=== PATIENT | female | born 1960 | race Caucasian/White ===

== ENCOUNTER 2020-11-21 12:49 | Inpatient (IN) | payer BC ==
[~2020-11-21] VITALS: Ht 165.1 cm; Wt 77.1 kg
[~2020-11-21 12:49] MED LIST: ALLEGRA-D TABLE1 TAB PO; BENADRYL25 M2 PO; BRINTELLIX20 PO; FLEXERIL 1010 MG/TAB PO; KLOR-CON 1010 MEQ PO; KLOR-CON SPRINK8 MEQ PO; LASIX 20MG TABL20 MG PO; LASIX 40MG TABL40 MG PO; NEB MC; PROAIR HFA0.09 MG/AC IH; PROTONIX 40MG T40 MG PO; ROXICODONE 55 MG/TAB PO; TYLENOL 500MG500 MG PO
--- NOTE | 2020-11-21 13:10 | NUR ---
PATIENT TRANSFERRED TO IPR ROOM 336 FROM SURGICAL 323.
[2020-11-21 14:08] VITALS: BP 109/64; PULSE 94; TEMP 98
--- NOTE | 2020-11-21 17:51 | NUR ---
PATIENT HAS HAD AN UNEVENTFUL AFTERNOON. MUSCLE RELAXER AND PAIN MEDICATION ADMINISTERED NEEDED. WILL REPORT OFF TO ONCOMING NURSE.
[2020-11-21 17:59] VITALS: BP 122/91; PULSE 118; TEMP 98.8
--- NOTE | 2020-11-21 19:00 | NUR ---
RECEIVED CHANGE OF SHIFT REPORT FROM DAY SHIFT NURSE.
[2020-11-22 06:08] VITALS: BP 127/78; PULSE 82; TEMP 97.6
--- NOTE | 2020-11-22 07:04 | NUR ---
PT SLEEPING IN BED AT BEDSIDE SHIFT REPORT, BED IN LOW, CALL LIGHT WITHIN REACH.
--- NOTE | 2020-11-22 07:15 | NUR ---
CHANGE OF SHIFT REPORT GIVEN TO DAY SHIFT NURSEJUAN FRANCISCO.
--- NOTE | 2020-11-22 15:05 | NUR ---
Initial visit; Patient spoke of how prayer saved her life and thanked Data Center Solutions Architect for offering prayer, God's blessings and Merry Mahamed.
--- NOTE | 2020-11-22 15:48 | NUR ---
Sheet Rock Applicator met with the patient to complete initial intake since the patient is new to [facility]. The patient lives in [place] with her , Mina. The patient has a walker and is independent with ADLs. The patient's PCP is Dr. Workman and patient receives medication from [email or web address]. The patient does not have advanced directives in the EMR but states they are complete. The patient had not concerns or questions at this time and SW will continue to follow.
[2020-11-22 17:35] VITALS: BP 119/72; PULSE 100; TEMP 97.8
--- NOTE | 2020-11-22 18:25 | NUR ---
PT RECEIEVED FLEXERIL TID TODAY, LORI X3 AND 2300 MG OF APAP. PT C/O CRAMPING IN BUTTOCKS TO LOWER BACK THIS EVENING WHEN GETTING UP TO TRANSFER TO BEDSIDE COMMODE. PT TRANSFERRING VERY SLOWLY BUT A MIN ASSIST IS NECESSARY. MOD ASSIST TO GET TO EDGE OF BED. PT RESTING IN BED AT BEDSIDE SHIFT REPORT.
--- NOTE | 2020-11-22 18:54 | NUR ---
RECEIVED CHANGE OF SHIFT REPORT FROM DAY SHIFT NURSE.
--- NOTE | 2020-11-22 19:56 | NUR ---
PATIENT REPORTING MORE MUSCLE SPASMS TO RIGHT GROIN AREA WITH WALKING THIS EVENING. KPAD SET UP AND APPLIED TO RIGHT GROIN AREA.
--- NOTE | 2020-11-22 21:28 | NUR ---
REPORTS KPAD HAS HELPED WITH DECREASING OCCURENCES OF R GROIN SPASMS WITH MOVEMENT IN BED OR SUDDEN MOVEMENT OF ANY KIND.
[2020-11-23 05:57] VITALS: BP 132/79; PULSE 92; TEMP 97.7
--- NOTE | 2020-11-23 07:40 | NUR ---
CHANGE OF SHIFT REPORT GIVEN TO DAY SHIFT NURSECHERRI.
--- NOTE | 2020-11-23 09:16 | NUR ---
Follow-up; Patient out walking, Home Health Administrator visited with her and wished her a Happy Holiday as she hopes to be goiRonng home soon
--- NOTE | 2020-11-23 13:30 | NUR ---
PATIENT REPORTS THAT SHE TAKES A NAUSEA MEDICATION AT HOME THAT IS PRESCRIBED TO HER. CALLED. PATIENT TAKES ZOFRAN 8MG Q8H PRN. NURSE PRACTITONER CALLED AND NOTIFIED THAT THE PATIENT DIDNT REPORT THE MEDICATION AT THE TIME OF HER ADMISSION. ANIMAL LABORATORY HELPER TO REVIEW PATIENT CHART ABOUT RE-STARTING HER HOME NAUSEA MEDICATION.
--- NOTE | 2020-11-23 14:21 | NUR ---
Drawing Tracer met with the patient to review the Team Conference Note. The team will re-evaluate the patient's progress next week. SW discussed having the family meeting next week on Saturday or Saturday. The patient will check availablity with her family later this day. She has no question at this time. SW to follow up with the patient on 11/24 regarding meeting time.
--- NOTE | 2020-11-23 14:40 | NUR ---
PATIENT GIVEN SALTINE CRACKERS AND CHOCOLATE MILK A SNACK WITH AFTERNOON MEDICATIONS. PATIENT ALSO GIVEN PRN DOSE OF CYCLOBENAZEPRINE AT THIS TIME FOR SPASMS IN THE RIGHT THIGH AND HIP.
[2020-11-23 16:48] VITALS: BP 127/60; PULSE 100; TEMP 97.9
--- NOTE | 2020-11-23 20:00 | NUR ---
PT SITTING UP IN RECLINER. ASSISTED TO BR W/ WALKER. PAIN W/ ACTIVITY. SLOW GUARDED AMB. VOIDING W/O DIFFICULTY. CHANGED CLOTHING FOR HS. NEEDS MAX ASSIST WITH CLOTHING LOWER HALF AND HYGIENE POST VOID. AMB TO BED. NEEDED ASSIST WITH LIFTING LEGS UP INTO BED. SEE MAR FOR MEDS GIVEN.
[2020-11-24 04:19] VITALS: BP 134/78; PULSE 80; TEMP 97.3
[2020-11-24 06:58] LABS: BASO # 0.1 (0.0-0.2); BASO % 1.3 % (0.0-2.0); EOS # 0.5 (0.0-0.7); EOS % 6.9 % (0-4.0); GRAN % 43.3 % (42.2-75.2); HEMATOCRIT 39.5 % (37.0-47.0); HEMOGLOBIN 12.5 g/dl (12.5-16.0); LYMPH # 2.6 (1.2-3.4); LYMPH % 36.8 % (20.0-51.0); MEAN CELL VOLUME 91 fl (80.0-100.0); MEAN CORPUSCULAR HEMOGLOBIN 29 pg (27.0-31.0); MEAN CORPUSCULAR HGB CONC 32 g/dl (33.0-37.0); MEAN PLATELET VOLUME 10.6 fl (7.4-10.4); MONO # 0.8 (0.1-0.6); MONO % 11.4 % (1.7-9.3); PLATELET COUNT 436 K/mm3 (130-400); RED BLOOD COUNT 4.33 M/mm3 (4.10-5.30); REDCELL DISTRIBUTION WIDTH-CV 14.6 % (11.5-14.5)
[2020-11-24 07:08] LABS: CALCIUM 10.1 mg/dL (8.4-10.2); CREATININE, serum 0.57 (0.52-1.25); MAGNESIUM 1.9 mg/dL (1.6-2.3)
--- NOTE | 2020-11-24 14:55 | NUR ---
Shipping/Receiving Manager contacted the patient's , Moe to discuss family meeting. He was agreeable to a meeting on Saturday, 11/28 at 1300. The best phone number is #[phone]. IMELDA collaborated the above information with NATALYA Baldwin Director.
--- NOTE | 2020-11-24 15:03 | NUR ---
Admission QIM scores were reviewed by the team. Code of 5 chosen for eating was determined by team discussion to be the most usual performance for this patient during the assessment period. Code of 5 chosen for oral hygiene was determined by team discussion to be the most usual performance before interventions for this patient during the assessment period. Code of 3 chosen for toilet hygiene was determined by team discussion to be the most usual performance for this patient during the assessment period. Code of 3 chosen for lower body dressing was determined by team discussion to be the most usual performance for this patient during the assessment period. Code of 1 chosen for putting on/taking off footwear was determined by team discussion to be the most usual performance for this patient during the assessment period. Code of 3 chosen for sit to lying was determined by team discussion to be the most usual performance for this patient during the assessment period. Code of 3 chosen for lying to sitting on side of bed was determined by team discussion to be the most usual performance for this patient during the assessment period. Code of 3 for sit to stand was determined by team discussion to be the most usual performance for this patient during the assessment period. Code of 3 for chair/bed to chair transfers was determined by team discussion to be the most usual performance for this patient during the assessment period.--PD Tuyet
[2020-11-24 16:39] VITALS: BP 120/74; PULSE 96; TEMP 98.2
--- NOTE | 2020-11-24 19:36 | NUR ---
Patient attended all therapies today tolerating the pain with using good breathing techniques and pain meds prn. Patient had no reports of nausea and did have a good bowel movement this afternoon. Patient denied any questions at this time. Reported off to night nurse.
--- NOTE | 2020-11-24 20:00 | NUR ---
ASSISTED TO BR WITH WALKER. WEAK AND STEADY. HAD BEEN SITTING IN RECLINER FOR AWHILE. FEELS VERY STIFF. NEUROVASCULAR STATUS WNL. TO BED. NEEDED HELP LIFTING LEGS INTO BED. SEE MAR FOR PAIN MEDS GIVEN.
[2020-11-25 06:03] VITALS: BP 129/81; PULSE 90; TEMP 97.4
--- NOTE | 2020-11-25 06:40 | NUR ---
ASSISTED PT UP TO BR. VOIDED HAD LG SF BR BM. SEE MAR FOR PAIN MEDS GIVEN. TRANSFERED TO RECLINER. CALL LIGHT IN REACH.
--- NOTE | 2020-11-25 07:48 | NUR ---
Patient resting in recliner eating breakfast and talking. Patient denies questions this morning. No nausea, reports pain to her right groin and wraps around to her right butt cheek. Given prn pain meds. Will continue to monitor.
--- NOTE | 2020-11-25 13:58 | NUR ---
Patient attended all therapies and she was happy to report that she was able to dress herself today. Patient has been receiving prn pain meds through the day and they have been effective. Patient tolerated diet well this shift. No complaints of nausea this afternoon. She did report some cramping in her right lower leg when doing therapy and patient was able to flex and contract right foot without any pain in her calf. Patient feels pain is from all the therapies. Will continue to monitor. She is currently resting in bed, call light in reach and uses her call light appropriatly.
[2020-11-25 16:52] VITALS: BP 117/66; PULSE 98; TEMP 98.1
--- NOTE | 2020-11-25 19:46 | NUR ---
PT IN BATHROOM. VOIDS CLEAR, YELLOW URINE. DAY SHIFT NURSE JUST GIVING DOSE OF FLEXERIL PER PT REQUEST. AMBULATES BACK TO BED WITH 1 ASSIST AND USES WALKER. SLOW, STEADY GAIT. ASSIST TO SUPINE POSITION. PAIN 4/10. ASSESSMENT COMPLETE. AIR ADDED TO AIR MATTRESS. CALL LIGHT IN REACH.
[2020-11-25 19:48] VITALS: BP 116/79; PULSE 105; TEMP 97.8
--- NOTE | 2020-11-25 19:55 | NUR ---
PT HAS A SLIGHTLY REDENED COCCYX AREA WITH A VERY SMALL LOOKING AREA ON LEFT BUTTOCKS THAT LOOKS LIKE AN AREA THAT PATIENT WAS SCRATCHING D/T DRY SKIN. NO OPEN AREAS. WILL CONTINUE TO MONITOR.
[2020-11-26 03:43] VITALS: BP 142/76; PULSE 95; TEMP 97.6
[2020-11-26 06:00] VITALS: BP 115/70; PULSE 94; TEMP 97.9
--- NOTE | 2020-11-26 06:04 | NUR ---
PT REPORTS BEING ABLE TO DOZE OFF AFTER THE PAIN MED. PILLOW PLACED UNDER RIGHT LEG. BED ALARM ON. DENIES ANY OTHER NEEDS.
--- NOTE | 2020-11-26 07:18 | NUR ---
PT RESTING IN BED AT BEDSIDE SHIFT REPORT. UP TO THE BATHROOM SHORTLY BREFOREHAND.
[2020-11-26 16:31] VITALS: BP 136/75; PULSE 98; TEMP 97.8
--- NOTE | 2020-11-26 18:50 | NUR ---
PT RECEIVED FLEXIRIL PRN TWICE TODAY AND PRN LORI WTIH PRN TYLENOL THREE TIMES. WILL REQUEST ALL THREE AT BEDTIME AROUND 2129. PT C/O TIGHT MUSCLES AND PAIN EVERYTIME SHE TRANSFERS AND NEEDS ASSISTANCE IN AND OUT OF BED AND WIPING AFTER TOILETING.
--- NOTE | 2020-11-26 19:40 | NUR ---
PT HAD JUST BEEN UP TO THE BR. RESTING IN BED. DENIES ANY NEEDS. CALL LIGHT IN REACH.
[2020-11-27 03:08] VITALS: BP 133/84; PULSE 93; TEMP 97.2
--- NOTE | 2020-11-27 08:20 | NUR ---
JERMAINE HAS BEEN PLEASANT TO TAKE CARE OF. SHE WILL GET UP TO THE BATHROOM WHEN NEEDED. WALKS WITH USE OF WALKER AND MINIMAL ASSIST. MOVING BETTER EACH DAY. STILL HAS A DIFFICULT TIME TO WIPE HERSELF. USES HER 3 DOSES OF FLEXERIL DURING THE TIME FRAME ORDERED. CALL LIGHT IN REACH.
--- NOTE | 2020-11-27 10:07 | NUR ---
Patient resting in bed, call light in reach and reporting pain 07/11. Denies questions.
[2020-11-27 17:47] VITALS: BP 120/80; PULSE 108; TEMP 98
--- NOTE | 2020-11-27 20:00 | NUR ---
PT RESTING IN BED. REQUEST PAIN MED AT HS. SEE MAR. GOOD NEUROVASCULAR STATUS BLE.
[2020-11-28 05:48] VITALS: BP 134/87; PULSE 88; TEMP 98.2
--- NOTE | 2020-11-28 06:55 | NUR ---
PT ASSISTED BY NATURAL RESOURCES TECHNICIAN TO RESTROOM AT BEDSIDE SHIFT REPORT. PT BACK TO BED, BED IN LOW, CALL LIGHT WITHIN REACH.
--- NOTE | 2020-11-28 13:36 | NUR ---
SW attended a patient/family conference call. The patient's and daughter, Dia, were on speaker phone. Also present was IPR Director, PT, and OT. IPR Director started by explaining the purpose of the meeting. PT/OT then discussed the patient's progress so far and how a tentative discharge date has been set for this , 12/01. Home health vs outpatient therapy is still be discussed. The patient reports that she already has a walker and her family states that will get a shower chair. The team answered all questions. SW to continue to follow.
[2020-11-28 16:17] VITALS: BP 120/79; PULSE 97; TEMP 97.6
--- NOTE | 2020-11-28 18:37 | NUR ---
PT MADE MOD-I IN ROOM PER THERAPY TODAY. PT TOLERATING IT WELL. RECEIEVED PRN FEXIRIL ONCE THIS SHIFT, LORI AND APAP 650 MG THREE TIMES. PT ENCOURAGED TO CONTINUE TO CALL IF SHE NEEDS ASSISTANCE WITH ANYTHING.
--- NOTE | 2020-11-28 20:00 | NUR ---
PT RESTING IN BED. MOD IN ROOM. PT REPORTS GETTING LEGS INTO BED PER SELF. HAVING PELVIC PAIN W/ ACTIVITIES. SEE MAR.
[2020-11-29 05:31] VITALS: BP 124/65; PULSE 96; TEMP 97.6
[2020-11-29 18:17] VITALS: BP 120/94; PULSE 115; TEMP 98.3
--- NOTE | 2020-11-29 19:37 | NUR ---
PT HAD CALLED FOR FLEXERIL AT SHIFT CHANGE. DAY SHIFT NURSE HAD GIVEN IT TO HER. CALL LIGHT IN REACH.
--- NOTE | 2020-11-29 19:48 | NUR ---
Patient attended all therapies today and is independent in her room. Patient continues to have pelvic pain, but is being managed with prn pain meds. Patient was independent on her cares for the day. Currently resting in bed, call light in reach and denies any questions at this time.
[2020-11-30 04:11] VITALS: BP 132/85; PULSE 92; TEMP 97.5
[2020-11-30 06:02] VITALS: BP 133/78; PULSE 92; TEMP 97.6
[2020-11-30 07:08] LABS: HEMATOCRIT 37.9 % (37.0-47.0); HEMOGLOBIN 12.3 g/dl (12.5-16.0); MEAN CELL VOLUME 91 fl (80.0-100.0); MEAN CORPUSCULAR HEMOGLOBIN 29 pg (27.0-31.0); MEAN CORPUSCULAR HGB CONC 33 g/dl (33.0-37.0); MEAN PLATELET VOLUME 10.3 fl (7.4-10.4); PLATELET COUNT 466 K/mm3 (130-400); RED BLOOD COUNT 4.18 M/mm3 (4.10-5.30); REDCELL DISTRIBUTION WIDTH-CV 14.5 % (11.5-14.5)
[2020-11-30 07:11] LABS: ALBUMIN 4.1 gm/dL (3.5-5.0); BILIRUBIN,TOTAL 0.5 mg/dL (0.0-1.0); CALCIUM 10.2 mg/dL (8.4-10.2); CREATININE, serum 0.62 (0.52-1.25); MAGNESIUM 1.9 mg/dL (1.6-2.3); POTASSIUM 4.4 mmol/L (3.4-5.0); TOTAL PROTEIN 7.8 gm/dL (6.4-8.2)
--- NOTE | 2020-11-30 07:48 | NUR ---
PT CALLS AND REQUEST PAIN MED FIRST THING. HAS LAB DRAW THIS AM. INDEPENDENTLY IN ROOM. CALL LIGHT IN REACH. DOING WELL THIS SHIFT.
--- NOTE | 2020-11-30 07:51 | NUR ---
JENNA HAD A QUIET NIGHT. DRESSING TO LLE CHANGED. CALLED FOR PAIN MEDS. CALLED FOR SOMETHING TO HELP WITH HEARTBURN. WAS SLEEPING WHEN I RETURNED TO THE ROOM. NO MED GIVEN FOR HEARTBURN. LATER WOKE UP AND SAID HER HEARTBURN WAS BETTER. CALL LIGHT IN REACH.
[2020-11-30 07:57] LABS: BAND 1 % (0-10); EOSINOPHIL 4 % (0-4); LYMPHOCYTE 44 % (20.0-51.0); NEUTROPHILS 45 % (42.0-75.2); PLATELET ESTIMATE INCREASED (NORMAL)
--- NOTE | 2020-11-30 14:25 | NUR ---
Elementary Tutor met with the patient to present the Team Conference note. The team is recommending discharge home with home health on on , 12/01. SW provided list of home health agencies for the patient. She will review the list then inform this SW. The team is also recommending the patient purchase a toilet riser. She states she will purchase it.
[2020-11-30 16:31] VITALS: BP 125/82; PULSE 115; TEMP 98
--- NOTE | 2020-11-30 16:39 | NUR ---
The patient's nurse staffed with this Rug Repairer regarding home health choice. The patient chose [facility]. SW faxed referral.
--- NOTE | 2020-11-30 20:30 | NUR ---
Patient ambulating independently in room. Had some complaints of pain. Oxycodone administered per orders. Patient has no other needs at this time. Call light is within reach.
[2020-12-01 05:38] VITALS: BP 122/83; PULSE 96; TEMP 97.7
--- NOTE | 2020-12-01 07:01 | NUR ---
PT SLEEPING IN BED AT BEDSIDE SHIFT REPORT, CALL LIGHT WITHIN REACH, BED IN LOW. PT MOD-I IN ROOM, RECEIVED LORI AT 0430 AND FLEXIRIL AT 0620.
[2020-12-01] MEDS ORDERED: K-DUR 10 MEQ T10 MEQ PO (09:42)
[2020-12-01] MEDS ORDERED: FLEXERIL 1010 MG/TAB PO (09:43)
[2020-12-01] MEDS ORDERED: ROXICODONE 55 MG/TAB PO (09:45)
--- NOTE | 2020-12-01 10:06 | NUR ---
Emy, at [facility], reports that they are able to accept the patient. SW to inform the patient.
--- NOTE | 2020-12-01 10:28 | NUR ---
The patient is to discharge back home with her today, 12/01. IMELDA notified and faxed d/c orders to Emy at [facility]. No additional needs at this time.
--- NOTE | 2020-12-01 14:11 | NUR ---
PT RECEIEVED PRN LORI AND TYLENOL AT 1000. PT HEALTHY SUMMARY, DISCHARGE SUMMARY, AND HOME MEDS PRINTED AND REVIEWED WITH PT. STRESSED IMPORTANCE OF FOLLOW UP APPOINTMENTS. REVIEWED MEDICATIONS, CALLED PRESCRIPTION FOR POTASSIUM CHLORIDE TO [facility]. BELONGINGS GATHERED BY PT AND NURSE INCLUDING PHONE AND CHARGE AND JEWLERY. PT TRANSPORTED VIA BY NURSE AND SEATBELTED FOR [facility]IDE HOME. PT DENIED QUESTIONS, NUMBER PROVIDED IF ANY ARISE.
== END 2020-12-01 12:30 | disposition home health service (06) | DRG 561 ==
PROVIDERS: Student in an Organized Health Care Education/Training Program; ADMIT Internal Medicine
DX: S32.591D Other specified fracture of right pubis, subsequent encounter for fracture with routine healing (principal); K76.9 Liver disease, unspecified; E87.6 Hypokalemia; J30.2 Other seasonal allergic rhinitis; E83.42 Hypomagnesemia; F32.9 Major depressive disorder, single episode, unspecified; D64.9 Anemia, unspecified; K21.9 Gastro-esophageal reflux disease without esophagitis; R26.89 Other abnormalities of gait and mobility; F17.210 Nicotine dependence, cigarettes, uncomplicated; W01.0XXD Fall on same level from slipping, tripping and stumbling without subsequent striking against object, subsequent encounter; Y92.009 Unspecified place in unspecified non-institutional (private) residence as the place of occurrence of the external cause; Z79.891 Long term (current) use of opiate analgesic; Z79.899 Other long term (current) drug therapy; Z90.710 Acquired absence of both cervix and uterus; Z90.49 Acquired absence of other specified parts of digestive tract; Z88.5 Allergy status to narcotic agent
CPT/HCPCS: 99222-AI; 99231-AI; 99232-AI; 99239; J1650